=== PATIENT | female | born 1965 | race Caucasian/White ===

== ENCOUNTER 2022-02-18 20:51 | Inpatient (IN) | payer BC, OTHER ==
[~2022-02-18] VITALS: Ht 157.5 cm; Wt 93.5 kg
[2022-02-18] MEDS ORDERED: ASPIRIN 81MG TABLET PO ONE (23:00)
[2022-02-18] MEDS ORDERED: NITROGLYCERIN 0.4MG TABLET SL SL PRN (23:00)
[2022-02-18 23:17] LABS: BASOPHILS % 0.8 % (0.0-2.0); EOSINOPHILS % 1.5 % (0.0-5.0); HEMATOCRIT. 39.1 % (36.0-48.0); HEMOGLOBIN. 12.9 g/dL (12.0-16.0); LYMPHOCYTES % 25.7 % (20.0-50.0); MEAN CORPUSCULAR HEMOGLOBIN 26.6 pg (28.0-32.0); MEAN CORPUSCULAR VOLUME 80.4 fL (81.0-99.0); MEAN PLATELET VOLUME 7.7 fl (7.4-10.4); MONOCYTES % 6.3 % (2.0-8.0); NEUTROPHILS % 65.7 % (40.0-76.0); PLATELET 234 x1000/uL (130-400); RED BLOOD CELL COUNT 4.86 mill/uL (4.2-5.4); RED CELL DISTRIBUTION WIDTH 14.8 % (11.6-14.6)
[2022-02-18 23:24] LABS: CHLORIDE 106 mEq/L (98-107)
[2022-02-19] VITALS (10 sets, daily range): BP systolic 121–173; BP diastolic 34–115
[2022-02-19] MEDS ORDERED: ENOXAPARIN 40MG/0.4ML SYR SUBCUT SCH (07:30)
[2022-02-19] MEDS ORDERED: KETOROLAC 15MG/ML VIAL IV PRN (07:30)
[2022-02-19] MEDS ORDERED: NITROGLYCERIN 0.4MG TABLET SL SL PRN (07:30)
[2022-02-19] MEDS ORDERED: IPRATROPIUM/ALBUTEROL 0.5-3(2.5)MG/3ML NEB NEB PRN (07:30)
[2022-02-19] MEDS ORDERED: GUAIFENESIN 200MG/10ML SUGAR FREE UDC PO PRN (07:30)
[2022-02-19] MEDS ORDERED: MAGNESIUM/ALUMINUM HYDROXIDE/SIMETHICONE 30ML UDC PO PRN (07:30)
[2022-02-19] MEDS ORDERED: ACETAMINOPHEN 325MG TABLET PO PRN ×2 (07:30)
[2022-02-19] MEDS ORDERED: ONDANSETRON HCL 4MG/2ML INJ IV PRN (07:30)
[2022-02-19] MEDS ORDERED: DOCUSATE SODIUM 100MG CAPSULE PO PRN (07:30)
[2022-02-19] MEDS ORDERED: CLONIDINE 0.1MG TABLET PO PRN (07:30)
[2022-02-19 08:26] LABS: ETHANOL BLOOD < 10 mg/dL
[2022-02-19 08:27] LABS: TOTAL IRON BINDING CAPACITY 352 ug/dL (250-450)
[2022-02-19 08:28] LABS: LDL CHOLESTEROL 84 mg/dL (5-100)
[2022-02-19 08:30] LABS: HDL CHOLESTEROL 55 mg/dL (40-59)
[2022-02-19 08:31] LABS: T4 FREE 0.94 ng/dL (0.76-1.46)
[2022-02-19 08:47] LABS: FOLIC ACID (FOLATE) SERUM 17.6 ng/mL (>5.38)
[2022-02-19] MEDS ORDERED: ENOXAPARIN 30MG/0.3ML SYR SUBCUT SCH (09:00)
[2022-02-19] MEDS ORDERED: HEPARIN SODIUM 1,000 UNIT/1ML VIAL IV ONE (09:24)
[2022-02-19] MEDS ORDERED: NITROGLYCERIN 50MCG/ML 10ML VIAL (CATH LAB) IV ONE (09:24)
[2022-02-19] MEDS ORDERED: NICARDIPINE 100MCG/ML 10ML VIAL (CATH LAB) IV ONE (09:24)
[2022-02-19] MEDS: ZINC SULFATE 220 MG ( 50 ) CAPSULE PO SCH (09:37)
[2022-02-19] MEDS: ASPIRIN 325MG EC TABLET PO SCH (09:37)
[2022-02-19] MEDS: FAMOTIDINE 20MG TABLET PO SCH ×2 (09:37→20:33)
[2022-02-19] MEDS: AMLODIPINE 10MG TABLET PO SCH (09:37)
[2022-02-19] MEDS ORDERED: LIDOCAINE HCL 1% 30ML VIAL (10MG/ML) ONE (11:20)
[2022-02-19] MEDS ORDERED: IODIXANOL 320MG/ML 100 ML BOTTLE IV ONE (11:20)
[2022-02-19] MEDS ORDERED: VERAPAMIL HCL 2.5 MG/1 ML 2ML VIAL IV ONE (11:20)
[2022-02-19] MEDS ORDERED: FENTANYL CITRATE/PF 50MCG/ML 2ML VIAL ONE (11:56)
[2022-02-19] MEDS ORDERED: MIDAZOLAM HCL 2 MG/2 ML VIAL ONE (11:56)
[2022-02-19] MEDS ORDERED: DIPHENHYDRAMINE 50MG/ML VIAL ONE (11:59)
[2022-02-19 12:01] LABS: CREATINE KINASE 63 IU/L (26-192)
[2022-02-19 12:02] LABS: CREATINE KINASE MB FRACTION 1.1 ng/mL (0.5-3.6)
[2022-02-19] MEDS ORDERED: ATROPINE SULFATE 1MG/10ML SYR IV PRN (13:00)
[2022-02-19] MEDS ORDERED: DEXTROSE 50% WATER 50ML SYRINGE IV PRN (15:15)
[2022-02-19] MEDS: INSULIN LISPRO 100 UNITS/ML SUBCUT SCH ×2 (15:59→20:25)
[2022-02-19] MEDS: BLOOD SUGAR DIAGNOSTIC STRIP TEST SCH ×2 (15:59→20:23)
[2022-02-19] MEDS ORDERED: ZOLPIDEM TARTRATE 5MG TABLET PO PRN (21:00)
[2022-02-20] VITALS (7 sets, daily range): BP systolic 112–139; BP diastolic 68–91
[2022-02-20 00:13] LABS: CREATINE KINASE MB FRACTION 1.1 ng/mL (0.5-3.6)
[2022-02-20 06:30] LABS: BASOPHILS % 0.8 % (0.0-2.0); EOSINOPHILS % 1.6 % (0.0-5.0); HEMATOCRIT. 40.6 % (36.0-48.0); HEMOGLOBIN. 13.6 g/dL (12.0-16.0); LYMPHOCYTES % 24.4 % (20.0-50.0); MEAN CORPUSCULAR HEMOGLOBIN 26.7 pg (28.0-32.0); MEAN CORPUSCULAR VOLUME 79.7 fL (81.0-99.0); MONOCYTES % 6.1 % (2.0-8.0); NEUTROPHILS % 67.1 % (40.0-76.0); RED CELL DISTRIBUTION WIDTH 14.5 % (11.6-14.6)
[2022-02-20 06:36] LABS: CHLORIDE 108 mEq/L (98-107)
[2022-02-20 06:42] LABS: PHOSPHORUS 2.5 mg/dL (2.5-4.9)
[2022-02-20] MEDS: BLOOD SUGAR DIAGNOSTIC STRIP TEST SCH (07:15)
[2022-02-20] MEDS: ASPIRIN 325MG EC TABLET PO SCH (07:19)
[2022-02-20] MEDS: FAMOTIDINE 20MG TABLET PO SCH (07:19)
[2022-02-20] MEDS: ZINC SULFATE 220 MG ( 50 ) CAPSULE PO SCH (07:19)
[2022-02-20] MEDS: AMLODIPINE 10MG TABLET PO SCH (07:20)
[2022-02-20] MEDS: INSULIN LISPRO 100 UNITS/ML SUBCUT SCH (07:20)
[2022-02-20 14:50] LABS: MEAN PLATELET VOLUME 8.1 fl (7.4-10.4); PLATELET 219 x1000/uL (130-400)
[2022-02-21] MEDS ORDERED: ASPIRIN 81MG EC TABLET PO SCH (09:00)
== END 2022-02-20 11:50 | disposition home or self-care (01) | DRG 287 ==
LOC: ER 20:51 → 6WST 02-19 03:53 → ENRESERV 02-19 08:27 → 3WST 02-19 13:08
PROVIDERS: ADMIT Internal Medicine; ATTEND Internal Medicine
PROC: 4A023N7 Measurement of Cardiac Sampling and Pressure, Left Heart, Percutaneous Approach (ICD-10-PCS; principal; 2022-02-19)
PROC: B211YZZ Fluoroscopy of Multiple Coronary Arteries using Other Contrast (ICD-10-PCS; 2022-02-19)
DX: I25.110 Atherosclerotic heart disease of native coronary artery with unstable angina pectoris (principal); I16.1 Hypertensive emergency; E66.9 Obesity, unspecified; E11.9 Type 2 diabetes mellitus without complications; Z20.822 Contact with and (suspected) exposure to COVID-19; I10 Essential (primary) hypertension; I27.20 Pulmonary hypertension, unspecified; Z87.891 Personal history of nicotine dependence; Z68.37 Body mass index [BMI] 37.0-37.9, adult
CPT/HCPCS: 36415; 71045; 80048; 80053; 80061; 80320; 82550; 82553; 82607; 82746; 82962; 83036; 83540; 83550; 83735; 83880; 84100; 84439; 84443; 84484; 85025; 87426; 93005; 93306; 93458; 93970; 99285; C1769; C1887; C1893; J1200; J1644; J1650; J2250; J3010; J3490; Q9967; G0480